=== PATIENT | female | born 1970 | race Caucasian/White ===

== ENCOUNTER 2023-06-06 15:33 | Inpatient (IN) | payer OTHER ==
[~2023-06-06] VITALS: Ht 160 cm; Wt 81.3 kg
[2023-06-06 16:20] LABS: Albumin 3.7 g/dL (3.4-5.0); Calcium 9.1 mg/dL (8.5-10.1); Potassium 3.7 mmol/L (3.5-5.1)
[2023-06-06 16:23] LABS: BUN/Creatinine Ratio 27.6 (10.0-20.0); Bilirubin, Total 2.8 mg/dL (0.2-1.0)
[2023-06-06 16:33] LABS: Basophils # (auto) 0 10 ^3/uL (0-0.2); Basophils % (auto) 0.5 % (0.0-2.0); Eosinophils # (auto) 0.1 10 ^3/uL (0-0.8); Eosinophils % (auto) 1.1 % (0.0-7.0); Hematocrit 38.6 % (36.0-46.0); Lymphocytes # (auto) 1.2 10 ^3/uL (0.4-5.4); Lymphocytes % (auto) 13.6 % (10.0-50.0); Mean Corpuscular Hemoglobin 28.8 pg (28.0-32.0); Mean Corpuscular Hgb Conc. 33.8 g/dL (32.0-36.0); Mean Corpuscular Volume 85.2 fL (80.0-100.0); Monocytes # (auto) 0.5 10 ^3/uL (0-1.3); Monocytes % (auto) 5.7 % (0.0-12.0); Neutrophils # (auto) 7.1 10 ^3/uL (1.6-8.6); Neutrophils % (auto) 79.1 % (37.0-80.0); Nucleated Red Blood Cells % 0.1 %; Red Blood Cells 4.53 10^6/uL (4.0-5.20); White Blood Cell 8.9 10^3/uL (4.4-10.8)
[2023-06-06 17:13] LABS: Platelet Estimate Decreased
[2023-06-06 17:25] VITALS: PULSE 91; RESP 16; O2SAT 98
[2023-06-06] MEDS ORDERED: ONDANSETRON HCL 4 MG/2 ML VIAL IV ONE (17:30)
[2023-06-06] MEDS ORDERED: MORPHINE SULFATE 4 MG/ML SYR/VIAL IV ONE (17:30)
[2023-06-06 18:37] LABS: Urine Bacteria FEW /hpf (None Seen); Urine Hyaline Cast FEW /lpf (0 - 2); Urine WBC 4 /hpf (0 - 5)
[2023-06-06 18:45] LABS: Urine Clarity CLEAR (Clear); Urine Color Straw (Yellow); Urine Protein, UAD Trace (Negative); Urine Specific Gravity 1.015 (1.001-1.035)
[2023-06-06 18:48] LABS: Urine Blood Negative /uL (Negative); Urine Urobilinogen Normal (Negative); Urine pH 5 (5.0-8.0)
[2023-06-06] MEDS ORDERED: ONDANSETRON HCL 4 MG/2 ML VIAL IV PRN (19:15)
[2023-06-06] MEDS ORDERED: DEXTROSE (50%) 50ML SYRG IV PRN (19:15)
[2023-06-06] MEDS ORDERED: FUROSEMIDE 40 MG/4 ML VIAL IV ONE (19:15)
[2023-06-06] MEDS ORDERED: ACETAMINOPHEN 325 MG TAB PO PRN (19:15)
[2023-06-06 19:30] VITALS: PULSE 97; RESP 20; O2SAT 96
[2023-06-06] MEDS: ACCU-CHEK COMFORT CURVE STRIP VI SCH (22:10)
[2023-06-06] MEDS: hydrALAZINE HCL 25 MG TAB PO SCH (22:26)
[2023-06-06] MEDS: GABAPENTIN 300 MG CAP PO SCH (22:26)
[2023-06-06] MEDS: TACROLIMUS 0.5 MG CAP PO SCH (22:26)
[2023-06-06] MEDS: InsuLIN REG 1unit/0.01ml Soln (100units/ml) SC SCH (22:27)
[2023-06-06] MEDS: HYDROcodone-ACET 5/325MG TAB PO PRN (23:16)
[2023-06-07] VITALS (8 sets, daily range): BP systolic 98–126; BP diastolic 62–71; PULSE 69–93; RESP 16–20; TEMP 36.9; O2SAT 92–94
[2023-06-07] MEDS: MORPHINE SULFATE INJ 2 MG/ml SYRG IV PRN ×2 (02:02→17:12)
[2023-06-07] MEDS: HYDROcodone-ACET 5/325MG TAB PO PRN ×3 (04:46→14:50)
[2023-06-07 05:57] LABS: Basophils # (auto) 0 10 ^3/uL (0-0.2); Lymphocytes # (auto) 1.9 10 ^3/uL (0.4-5.4); Neutrophils # (auto) 6.3 10 ^3/uL (1.6-8.6); Nucleated Red Blood Cells % 0.1 %
[2023-06-07 05:59] LABS: Basophils % (auto) 0.4 % (0.0-2.0); Eosinophils # (auto) 0.2 10 ^3/uL (0-0.8); Eosinophils % (auto) 1.7 % (0.0-7.0); Hematocrit 33.4 % (36.0-46.0); Hemoglobin 11.9 g/dL (12.2-16.2); Lymphocytes % (auto) 20.8 % (10.0-50.0); Mean Corpuscular Hgb Conc. 35.6 g/dL (32.0-36.0); Mean Corpuscular Volume 84.2 fL (80.0-100.0); Monocytes # (auto) 0.7 10 ^3/uL (0-1.3); Monocytes % (auto) 7.6 % (0.0-12.0); Neutrophils % (auto) 69.5 % (37.0-80.0); Red Blood Cells 3.97 10^6/uL (4.0-5.20); Red Cell Distribution Width 18.2 % (11.8-14.3); White Blood Cell 9.1 10^3/uL (4.4-10.8)
[2023-06-07] MEDS: GABAPENTIN 300 MG CAP PO SCH ×3 (06:00→22:00)
[2023-06-07] MEDS: hydrALAZINE HCL 25 MG TAB PO SCH ×3 (06:00→22:00)
[2023-06-07 06:35] LABS: Potassium 3.4 mmol/L (3.5-5.1)
[2023-06-07 06:36] LABS: Platelet Estimate Decreased
[2023-06-07 06:37] LABS: Large Platelets FEW
[2023-06-07 06:43] LABS: Albumin 3.6 g/dL (3.4-5.0); BUN/Creatinine Ratio 29.4 (10.0-20.0); Bilirubin, Total 2.7 mg/dL (0.2-1.0); Calcium 8.5 mg/dL (8.5-10.1); Total Protein 6.8 g/dL (6.4-8.2)
[2023-06-07] MEDS: InsuLIN REG 1unit/0.01ml Soln (100units/ml) SC SCH ×4 (07:00→22:00)
[2023-06-07] MEDS: ACCU-CHEK COMFORT CURVE STRIP VI SCH ×4 (07:00→22:00)
[2023-06-07] MEDS ORDERED: FUROSEMIDE 20 MG TAB PO SCH (10:00)
[2023-06-07] MEDS ORDERED: ALBUMIN 25% 100 ML IV ONE (10:15)
[2023-06-07] MEDS ORDERED: POTASSIUM EFFERVESENT TAB 25 MEQ PO ONE (10:15)
[2023-06-07] MEDS: TACROLIMUS 0.5 MG CAP PO SCH ×2 (10:29→22:00)
[2023-06-07] MEDS: PANTOPRAZOLE 40 MG TAB PO SCH (10:29)
[2023-06-07] MEDS ORDERED: SODIUM CHLORIDE 0.9% 1,000 ML IV ONE (10:30)
[2023-06-07] MEDS: FUROSEMIDE 20 MG TAB PO SCH (10:40)
[2023-06-08] VITALS (7 sets, daily range): BP systolic 107–122; BP diastolic 66–74; PULSE 87–94; RESP 16–20; TEMP 97.7–98.5; O2SAT 90–96
[2023-06-08] MEDS: MORPHINE SULFATE INJ 2 MG/ml SYRG IV PRN ×4 (01:01→21:00)
[2023-06-08] MEDS: HYDROcodone-ACET 5/325MG TAB PO PRN (04:32)
[2023-06-08] MEDS: hydrALAZINE HCL 25 MG TAB PO SCH ×3 (06:00→22:00)
[2023-06-08] MEDS: GABAPENTIN 300 MG CAP PO SCH ×3 (06:26→21:50)
[2023-06-08] MEDS: ACCU-CHEK COMFORT CURVE STRIP VI SCH ×4 (07:00→23:57)
[2023-06-08] MEDS: InsuLIN REG 1unit/0.01ml Soln (100units/ml) SC SCH ×4 (07:00→21:52)
[2023-06-08 07:23] LABS: Potassium 4.1 mmol/L (3.5-5.1)
[2023-06-08 07:32] LABS: BUN/Creatinine Ratio 28.1 (10.0-20.0); Calcium 9.1 mg/dL (8.5-10.1)
[2023-06-08] MEDS: FUROSEMIDE 20 MG TAB PO SCH (10:23)
[2023-06-08] MEDS: PANTOPRAZOLE 40 MG TAB PO SCH (10:23)
[2023-06-08] MEDS: TACROLIMUS 0.5 MG CAP PO SCH ×2 (10:24→22:03)
[2023-06-08] MEDS ORDERED: DOCUSATE SOD 100 MG CAP PO ONE (12:15)
[2023-06-08] MEDS ORDERED: LACTULOSE 20Gm/30ML SOLN PO PRN (12:15)
[2023-06-08 14:36] LABS: Protein, Urine 42.6 mg/dL (0.0-11.9); Urine Protein/Creatinine Ratio 0.46
[2023-06-08] MEDS: DOCUSATE SOD 100 MG CAP PO SCH (21:50)
[2023-06-09] VITALS (7 sets, daily range): BP systolic 105–132; BP diastolic 65–89; PULSE 86–96; RESP 15–22; TEMP 97.8–98.3; O2SAT 91–99
[2023-06-09] MEDS: HYDROcodone-ACET 5/325MG TAB PO PRN ×2 (00:49→20:26)
[2023-06-09] MEDS: MORPHINE SULFATE INJ 2 MG/ml SYRG IV PRN ×5 (03:11→23:16)
[2023-06-09] MEDS: hydrALAZINE HCL 25 MG TAB PO SCH ×3 (06:00→21:39)
[2023-06-09 06:19] LABS: BUN/Creatinine Ratio 25.6 (10.0-20.0); Calcium 9.1 mg/dL (8.5-10.1); Potassium 4.1 mmol/L (3.5-5.1)
[2023-06-09 06:26] LABS: Basophils # (auto) 0 10 ^3/uL (0-0.2); Basophils % (auto) 0.4 % (0.0-2.0); Hemoglobin 11.5 g/dL (12.2-16.2); Monocytes # (auto) 0.6 10 ^3/uL (0-1.3); Nucleated Red Blood Cells % 0.1 %; Red Cell Distribution Width 18.1 % (11.8-14.3)
[2023-06-09 06:29] LABS: Eosinophils # (auto) 0.2 10 ^3/uL (0-0.8); Eosinophils % (auto) 1.7 % (0.0-7.0); Hematocrit 33.4 % (36.0-46.0); Lymphocytes # (auto) 1.9 10 ^3/uL (0.4-5.4); Lymphocytes % (auto) 21.5 % (10.0-50.0); Mean Corpuscular Hemoglobin 28.9 pg (28.0-32.0); Mean Corpuscular Hgb Conc. 34.3 g/dL (32.0-36.0); Mean Corpuscular Volume 84.4 fL (80.0-100.0); Monocytes % (auto) 7.2 % (0.0-12.0); Neutrophils # (auto) 6.2 10 ^3/uL (1.6-8.6); Neutrophils % (auto) 69.2 % (37.0-80.0); Red Blood Cells 3.96 10^6/uL (4.0-5.20); White Blood Cell 8.9 10^3/uL (4.4-10.8)
[2023-06-09] MEDS: InsuLIN REG 1unit/0.01ml Soln (100units/ml) SC SCH ×4 (06:39→21:37)
[2023-06-09] MEDS: GABAPENTIN 300 MG CAP PO SCH ×3 (06:41→21:38)
[2023-06-09] MEDS: ACCU-CHEK COMFORT CURVE STRIP VI SCH ×4 (06:52→22:24)
[2023-06-09] MEDS: DOCUSATE SOD 100 MG CAP PO SCH ×2 (09:04→21:38)
[2023-06-09] MEDS: PANTOPRAZOLE 40 MG TAB PO SCH (09:04)
[2023-06-09] MEDS: TACROLIMUS 0.5 MG CAP PO SCH ×2 (09:04→21:40)
[2023-06-09] MEDS: FUROSEMIDE 20 MG TAB PO SCH (09:06)
[2023-06-09] MEDS ORDERED: INSULIN LANTUS (GLARGINE) 1 /0.01ml (100units/ml) SC ONE (11:30)
[2023-06-09] MEDS ORDERED: INSULIN LANTUS (GLARGINE) 1 /0.01ml (100units/ml) SC SCH (22:00)
[2023-06-10] MEDS: MORPHINE SULFATE INJ 2 MG/ml SYRG IV PRN ×2 (03:41→12:40)
[2023-06-10 05:15] VITALS: BP 113/64; PULSE 89; RESP 19; TEMP 98.1; O2SAT 97
[2023-06-10] MEDS: hydrALAZINE HCL 25 MG TAB PO SCH ×2 (06:00→14:51)
[2023-06-10] MEDS: InsuLIN REG 1unit/0.01ml Soln (100units/ml) SC SCH ×3 (06:31→17:00)
[2023-06-10] MEDS: GABAPENTIN 300 MG CAP PO SCH ×2 (06:33→14:50)
[2023-06-10] MEDS: ACCU-CHEK COMFORT CURVE STRIP VI SCH ×3 (06:42→17:00)
[2023-06-10 06:47] LABS: Basophils # (auto) 0 10 ^3/uL (0-0.2); Basophils % (auto) 0.4 % (0.0-2.0); Eosinophils # (auto) 0.1 10 ^3/uL (0-0.8); Eosinophils % (auto) 1.7 % (0.0-7.0); Hematocrit 34.5 % (36.0-46.0); Hemoglobin 11.8 g/dL (12.2-16.2); Lymphocytes # (auto) 1.7 10 ^3/uL (0.4-5.4); Lymphocytes % (auto) 18.9 % (10.0-50.0); Mean Corpuscular Hemoglobin 28.9 pg (28.0-32.0); Mean Corpuscular Hgb Conc. 34.1 g/dL (32.0-36.0); Mean Corpuscular Volume 84.6 fL (80.0-100.0); Monocytes # (auto) 0.5 10 ^3/uL (0-1.3); Neutrophils # (auto) 6.4 10 ^3/uL (1.6-8.6); Nucleated Red Blood Cells % 0.1 %; Red Blood Cells 4.08 10^6/uL (4.0-5.20); White Blood Cell 8.8 10^3/uL (4.4-10.8)
[2023-06-10 06:59] LABS: Albumin 3.4 g/dL (3.4-5.0); Calcium 9.1 mg/dL (8.5-10.1)
[2023-06-10 07:05] LABS: Bilirubin, Total 2.5 mg/dL (0.2-1.0); Total Protein 7.5 g/dL (6.4-8.2)
[2023-06-10 07:09] LABS: INR 1.03 (0.9-1.15); Prothrombin Time 10.8 sec (9.3-11.8)
[2023-06-10 08:00] VITALS: PULSE 91; RESP 19; O2SAT 99
[2023-06-10 09:00] VITALS: BP 101/71; PULSE 91; RESP 19; TEMP 98.1; O2SAT 99
[2023-06-10] MEDS: DOCUSATE SOD 100 MG CAP PO SCH (09:40)
[2023-06-10] MEDS: PANTOPRAZOLE 40 MG TAB PO SCH (09:41)
[2023-06-10] MEDS: FUROSEMIDE 20 MG TAB PO SCH (09:41)
[2023-06-10] MEDS: HYDROcodone-ACET 5/325MG TAB PO PRN (09:42)
[2023-06-10] MEDS ORDERED: TACROLIMUS 1 MG CAP PO SCH (10:00)
[2023-06-10 12:30] VITALS: BP 110/69; PULSE 86; RESP 17; TEMP 98; O2SAT 98
[2023-06-10 13:52] VITALS: BP 110/69; PULSE 86; RESP 17; TEMP 98; O2SAT 98
[2023-06-10 14:51] VITALS: BP 110/69; PULSE 86; RESP 17
[2023-06-11 09:30] LABS: Hepatitis B Surface Antibody Negative (Negative)
[2023-06-11 10:06] LABS: Hepatitis A Total Antibody Negative (Negative)
[2023-06-11 11:42] LABS: Hepatitis B Core Total AB Negative (Negative); Hepatitis B Surface Antigen Negative (Negative)
[2023-06-11 11:46] LABS: Hepatitis C Antibody Negative (Negative)
== END 2023-06-10 16:50 | disposition home or self-care (01) | DRG 469 ==
LOC: ER 15:33 → OVERFLOW 19:16 → EAST 23:09
PROVIDERS: ADMIT Nurse Practitioner; ATTEND Internal Medicine Geriatric Medicine
DX: N17.0 Acute kidney failure with tubular necrosis (principal); I42.9 Cardiomyopathy, unspecified; D69.6 Thrombocytopenia, unspecified; Z94.1 Heart transplant status; I13.0 Hypertensive heart and chronic kidney disease with heart failure and stage 1 through stage 4 chronic kidney disease, or unspecified chronic kidney disease; I50.9 Heart failure, unspecified; D63.1 Anemia in chronic kidney disease; K74.60 Unspecified cirrhosis of liver; K76.6 Portal hypertension; R16.2 Hepatomegaly with splenomegaly, not elsewhere classified; E87.6 Hypokalemia; E80.4 Gilbert syndrome; N18.31 Chronic kidney disease, stage 3a; R33.9 Retention of urine, unspecified; F41.9 Anxiety disorder, unspecified; F32.A Depression, unspecified; K59.00 Constipation, unspecified; N13.30 Unspecified hydronephrosis; E11.65 Type 2 diabetes mellitus with hyperglycemia; E11.22 Type 2 diabetes mellitus with diabetic chronic kidney disease; Z88.1 Allergy status to other antibiotic agents; Z88.0 Allergy status to penicillin; Z90.49 Acquired absence of other specified parts of digestive tract; Z79.4 Long term (current) use of insulin
CPT/HCPCS: 36415; 74176; 76775; 76830; 76856; 80048; 80053; 80197; 81001; 82306; 82570; 82728; 82962; 83036; 83690; 83735; 83880; 83970; 84100; 84156; 84300; 85025; 85610; 86038; 86704; 86706; 86708; 86803; 87340; 96365; 96375; 97110; 97116; 97163; 97530; G0378; J1815; J2405; J7507; P9047